=== PATIENT | female | born 1975 | race Caucasian/White ===

== ENCOUNTER 2022-05-11 13:35 | Observation (INO) ==
[2022-05-11 14:50] LABS: Bilirubin,Urine Negative (Negative); Blood,Urine Negative (Negative); Clarity,Urine Clear (Clear); Color,Urine Light-Yellow (Yellow); Glucose,Urine (UA) Normal (Normal); Ketones,Urine Negative (Negative); Leukocyte Esterase,Urine Negative (Negative); Nitrite,Urine Negative (Negative); Protein,Urine Trace mg/dL (Neg-Trace); Specific Gravity,Urine 1.014 (1.010-1.025); Urobilinogen,Urine Normal (Normal)
[2022-05-11 15:17] LABS: Basophils % 0.3 %; Eosinophils # 0.1 K/mcL (0.0-0.6); Eosinophils % 0.5 %; Hematocrit 43.5 % (35.3-44.9); Hemoglobin 14.5 g/dL (11.5-15.4); Immature Granulocytes % 0.3 % (0-4); Lymphocytes # 1.7 K/mcL (0.6-4.6); Lymphocytes % 13.1 %; Mean Corpuscular HGB Conc 33.3 g/dL (31.6-35.5); Mean Corpuscular Hemoglobin 29.9 pg (28.0-33.3); Mean Corpuscular Volume 89.7 fL (83.0-100.0); Mean Platelet Volume 9.4 fL (9.4-12.4); Monocytes # 0.8 K/mcL (0.0-1.3); Monocytes % 6.5 %; Neutrophils # 10.2 K/mcL (1.6-8.9); Platelet Count 320 K/mcL (140-400); Red Blood Count 4.85 M/mcL (3.82-4.97); Red Cell Distribution Width 13.6 % (11.5-14.5); Segmented Neutrophils % 79.3 %; White Blood Count 12.9 K/mcL (4.3-11.1)
[2022-05-11 15:51] LABS: BUN/Creatinine Ratio 15 (6-26); Blood Urea Nitrogen 12 mg/dL (6-20); Calcium 9.7 mg/dL (8.6-10.3); Carbon Dioxide 26 mEq/L (23-29); Chloride 103 mEq/L (98-107); Glucose 105 mg/dL (70-105); Osmolality,Calculated 284 (280-300); Potassium 3.9 mEq/L (3.5-5.1); Sodium 137 mEq/L (136-145)
[2022-05-11] MEDS ORDERED: Ondansetron 4 MG/2 ML VIAL IVP ONE (16:19)
[2022-05-11] MEDS ORDERED: *HR* FentaNYL (PF) 100 MCG/2 ML VIAL IVP ONE (16:26)
[2022-05-11] MEDS ORDERED: Iopamidol - 370 500 ML MLS IVP ONE (17:03)
[2022-05-11] MEDS ORDERED: 0.9 % Sodium Chloride 1,000 ML IVC ONE (18:34)
[2022-05-11] MEDS ORDERED: Piperacillin/Tazobactam 3.375 GM in 0.9 % Sodium Chloride Mini Bag 100 ML IVPB ONE (18:34)
[2022-05-11] MEDS ORDERED: Ondansetron 4 MG/2 ML VIAL IVP PRN ×4 (19:18→22:28)
[2022-05-11] MEDS ORDERED: 0.9 % Sodium Chloride 1,000 ML IVC SCH ×2 (19:30→22:28)
[2022-05-11] MEDS ORDERED: CefOXitin 1,000 MG VIAL ONE (19:30)
[2022-05-11] MEDS ORDERED: *HR* Propofol 200 MG/20 ML VIAL IVP ONE (19:40)
[2022-05-11] MEDS ORDERED: Ondansetron 4 MG/2 ML VIAL ONE (19:41)
[2022-05-11] MEDS ORDERED: *HR* Rocuronium Bromide 50 MG/5 ML VIAL ONE (19:41)
[2022-05-11] MEDS ORDERED: Lidocaine -MPF 2% 5 ML VIAL ONE (19:41)
[2022-05-11] MEDS ORDERED: *HR* Succinylcholine 200 MG/10 ML VIAL IVP ONE (19:41)
[2022-05-11] MEDS ORDERED: Lidocaine HCL 4 ML Topical Solution (Laryng-O-Jet Kit Sterile Pak) TP ONE (19:41)
[2022-05-11] MEDS ORDERED: *HR* FentaNYL (PF) 100 MCG/2 ML VIAL ONE (19:43)
[2022-05-11] MEDS ORDERED: *HR* HYDROmorphone PF 0.5 MG/0.5 ML SYRINGE IVP PRN ×2 (20:11→22:28)
[2022-05-11] MEDS ORDERED: *HR* OxyCODONE Immed Rel 5 MG TABLET PO PRN ×2 (20:11→22:28)
[2022-05-11] MEDS ORDERED: *HR* Labetalol 20 MG/4 ML SYRINGE IVP PRN ×2 (20:11→22:28)
[2022-05-11] MEDS ORDERED: Acetaminophen IV 1,000 MG/100 ML BAG IVPB PRN ×2 (20:11→22:28)
[2022-05-11] MEDS ORDERED: Ipratropium Neb 0.5 MG NEBULIZER IH PRN ×2 (20:11→22:28)
[2022-05-11] MEDS ORDERED: *HR* Meperidine 25 MG/ML SYRINGE IVP PRN ×2 (20:11→22:28)
[2022-05-11] MEDS ORDERED: Ketorolac 30 MG/ML VIAL IVP PRN ×2 (20:11→22:28)
[2022-05-11] MEDS ORDERED: Albuterol 2.5 MG/3 ML NEBULIZER IH PRN ×2 (20:11→22:28)
[2022-05-11] MEDS ORDERED: *HR* HYDROMORPHONE 2 MG/ML VIAL ONE (20:56)
[2022-05-11] MEDS ORDERED: Sugammadex Sodium 200 MG/2 ML VIAL IV ONE (20:56)
[2022-05-12] MEDS: *HR* OxyCODONE/APAP 5/325 TABLET PO PRN ×2 (04:51→10:47)
[2022-05-12 08:27] VITALS: BP 110/70; PULSE 79; TEMP 98.2; O2SAT 96
[2022-05-12] MEDS ORDERED: Ibuprofen 800 MG TABLET PO ONE (08:38)
[2022-05-12] MEDS ORDERED: lisinopriL 10 MG TABLET PO SCH (09:00)
[2022-05-12] MEDS ORDERED: *HR* Metformin 500 MG TABLET PO SCH (09:00)
== END 2022-05-12 12:25 | disposition home or self-care (01) ==
LOC: EMEROOARM 13:35 → 3ANU 13:35
PROVIDERS: ADMIT Surgery; ATTEND Surgery